=== PATIENT | female | born 1985 | race Caucasian/White ===

== ENCOUNTER 2020-08-09 19:54 | Emergency (ER) | payer OTHER ==
[~2020-08-09] VITALS: Ht 160 cm; Wt 86.4 kg
[2020-08-09] MEDS ORDERED: BUSP1TAB PO (20:07)
[2020-08-09] MEDS ORDERED: OMEP10CASR PO (20:07)
[2020-08-09] MEDS ORDERED: PERCOCET PO (20:07)
[2020-08-09] MEDS ORDERED: BCP (20:08)
[2020-08-09] MEDS ORDERED: CYCL-707 PO (20:08)
[2020-08-09] MEDS ORDERED: ACETAMINOPHEN 500 MG TAB PO ONE (20:30)
[2020-08-09] MEDS ORDERED: LIDOCAINE 5% (LIDODERM) PATCH TD ONE (20:30)
[2020-08-09] MEDS ORDERED: CYCLOBENZAPRINE 10MG TABLET PO ONE (20:30)
[2020-08-09] MEDS ORDERED: KETOROLAC 60MG 2ML VIAL IM ONE (21:00)
--- NOTE | 2020-08-09 22:08 | REPVR ---
PROCEDURE INFORMATION: Exam: CT Abdomen And Pelvis Without Contrast Exam date and time: 08/09/2020 9:47 PM Age: 34 years old Clinical indication: Abdominal pain; Prior surgery; Additional info: L low back pain, hematuria, R/O stone TECHNIQUE: Imaging protocol: Computed tomography of the abdomen and pelvis without contrast. Radiation optimization: All CT scans at this facility use at least one of these dose optimization techniques: automated exposure control; mA and/or kV adjustment per patient size (includes targeted exams where dose is matched to clinical indication); or iterative reconstruction. COMPARISON: No relevant prior studies available. FINDINGS: Liver: Normal. No mass. Gallbladder and bile ducts: The gallbladder is contracted with no stones. Pancreas: Normal. No ductal dilation. Spleen: Normal. No splenomegaly. Adrenal glands: Normal. No mass. Kidneys and ureters: Mild left hydronephrosis and hydroureter with some periureteral edema which extends to a distal left ureteral calculus adjacent to the UVJ measuring 3 x 4 x 4 mm. Stomach and bowel: Borderline distention of the stomach with food material. Mild stool throughout much of the colon. Appendix: A normal appendix is seen. Intraperitoneal space: Unremarkable. No free air. No significant fluid collection. Vasculature: Unremarkable. No abdominal aortic aneurysm. Lymph nodes: Unremarkable. No enlarged lymph nodes. Urinary bladder: Unremarkable as visualized. Reproductive: Retroverted uterus. Bones/joints: Status post fusion from L3-S1 with posterior pedicular screws and interspace devices with anterior retainers. Soft tissues: Unremarkable. IMPRESSION: 1. Distal left ureteral calculus adjacent to the UVJ measuring 3 x 4 x 4 mm with obstructive uropathy of the left upper tract. 2. Status post anterior and posterior fusion from L3-S1. 3. There is borderline distention of the stomach which in view of a contracted gallbladder likely reflects recent ingestion. Electronically signed by: Berto Mejia On 08/09/2020 22:07:58 PM
[2020-08-09] MEDS ORDERED: KETO10TAB PO (22:18)
[2020-08-09] MEDS ORDERED: FLOM0.4C39 PO (22:18)
[2020-08-09 22:28] VITALS: BP 133/80
[2020-08-09] MEDS ORDERED: TAMSULOSIN 0.4 MG CAP PO ONE (22:30)
[2020-08-10] MEDS ORDERED: **NOTE PATIENT COMMENT** MISC XX ONE (08:30)
== END 2020-08-09 22:26 | disposition home or self-care (01) ==
LOC: M ED 19:54
DX: N20.1 Calculus of ureter (principal); M51.9 Unspecified thoracic, thoracolumbar and lumbosacral intervertebral disc disorder; G89.29 Other chronic pain; E66.9 Obesity, unspecified; F31.9 Bipolar disorder, unspecified; F41.9 Anxiety disorder, unspecified; F17.200 Nicotine dependence, unspecified, uncomplicated; Z79.899 Other long term (current) drug therapy; Z88.8 Allergy status to other drugs, medicaments and biological substances
CPT/HCPCS: 74176; 81001; 96372; 99283; J1885

== ENCOUNTER → 2020-09-05 | Outpatient (REF) | payer OTHER ==
[~2020-09-05] MED LIST: BCP; BUSP1TAB PO; CYCL-707 PO; FLOM0.4C39 PO; KETO10TAB PO; OMEP10CASR PO; PERCOCET PO
== END ==
LOC: M SMT 13:09
PROVIDERS: ATTEND Nurse Practitioner Women's Health
DX: N13.2 Hydronephrosis with renal and ureteral calculous obstruction (principal)

== ENCOUNTER 2020-10-28 13:11 | Emergency (ER) | payer OTHER ==
[~2020-10-28] VITALS: Ht 160 cm; Wt 94.1 kg
--- OUTSIDE RECORDS SUMMARY | 2020-10-28 13:17 | CCD | Continuity of Care Document ---
Author Author Ashly EDWARDS M.D. Organization Unknown Address [address] [place] [id number] Phone [phone] Care Team Providers Care Medical Assembler Name Role Phone Eveline Luna PA-C AUTM [phone] Evelina Pearce AUTM Unavailable Problems Active Problems Provider Date Migraine Bhupendra Edwards M.D. Onset: 10/20/2020 Social History Type Date Description Comments Sex Unknown Tobacco Use Start: Unknown Patient is a current smoker, smo kes every day Allergies, Adverse Reactions, Alerts Active Allergies Reaction Severity Comments Date Latex 10/20/2020 Zoloft Severe Anaphylaxis 10/20/2020 Ketorolac Rash 10/20/2020 Lexapro 10/20/2020 Wellbutrin 10/20/2020 Nortriptyline Burning sensation Medications Active Medications SIG Qnty Indications Ordering Provide r Date Verapamil HCL 40mg Tablets Take 1 tab PO bid after 1 week can increase to 2 tabs PO bid 120tabs S shruthi Edwards M.D. 10/20/2020 Zonisamide 50mg Capsules Patient takes 4 capsules at bedtime. Bhupendra Edwards M.D. Immunizations Description No Information Available Vital Signs Date Vital Result Comment 10/20/2020 8:56am Respiratory Rate 12 /min Height 63 inches 5'3" Weight 190.00 lb BMI (Body Mass Index) 33.7 kg/m2 [place] Body Weight 115 lb Results Description No Information Available Procedures Description No Information Available Medical Devices Description No Information Available Encounters Description No Information Available Assessments Date Code Description Provider 10/20/2020 G43.719 Chronic migraine wit hout aura, intractable, without status migrainosus Bhupendra Edwards M.D. 10/20/2020 N20.0 Calculus of kidney Bhupendra gonzalez M.D. Plan of Treatment Future Appointment(s):* 01/04/2021 2:00 pm - Bhupendra Edwards M.D. at Main office - [place] Functional Status Description No Information Available Mental Status Description No Information Available Referrals Description No Information Available
--- OUTSIDE RECORDS SUMMARY | 2020-10-28 13:17 | CCD | Continuity of Care Document ---
Author Author Ashly EDWARDS M.D. Organization Unknown Address [address] [place] [id number] Phone [phone] Care Team Providers Care Biometrics Instructor Name Role Phone Eveline Luna PA-C AUTM [phone] Evelina Pearce AUTM Unavailable Problems Active Problems [...] lb BMI (Body Mass Index) 33.7 kg/m2 [place] Body Weight 115 lb Results Description No Information Available Procedures Description No Information Available Medical Devices Description No Information Available Encounters Type Date Location Provider Dx Diagnosis Office Visit 10/20/2020 8:30a Main office - [place] Bhupendra ngo M.D. G43.719 Chronic migraine w/o aura, intractable, w/o stat migr N20.0 Calculus of kidney Assessments Date Code Description Provider 10/20/2020 G43.719 Chronic migraine wit hout aura, intractable, without status migrainosus Bhupendra Edwards M.D. 10/20/2020 N20.0 Calculus of kidney Bhupendra gonzalez M.D. Plan of Treatment Future Appointment(s):* 01/04/2021 2:00 pm - Bhupendra Edwards M.D. at Main office - [place] Functional Status Description No Information Available Mental Status Description No Information Available Referrals Description No Information Available
--- OUTSIDE RECORDS SUMMARY | 2020-10-28 13:17 | CCD ---
Author Author [facility] Organization [facility] Address Unknown Phone Unavailable Care Team Providers Care Sql Developer Dba Name Role Phone [facility], Emergency Gage Unavailable Unavailable Delta, COVID Unavailable Unavailable Clarita Yadav MD Unavailable Unavailable Clarita Yadav MD Unavailable Unavailable Clarita Yadav MD Unavailable Unavailable Kishan Zavaleta MD Unavailable Kishan Zavaleta MD Unavailable Kishan Zavaleta MD Unavailable Kishan Zavaleta MD Unavailable Kishan Zavaleta MD Unavailable Kelin ([facility] COVID), DO NOT EDIT Ady HERNÁNDEZ Unavail able Unavailable Sophie Antonio MD Unavailable Unavailable Sophie Antonio MD Unavailable Unavailable Sophie Antonio MD Unavailable Unavailable Sophie Antonio MD Unavailable Unavailable Sophie Antonio MD Unavailable Unavailable Sophie Antonio MD Unavailable Unavailable Sophie Antonio MD Unavailable Unavailable Sophie Antonio MD Unavailable Unavailable Sophie Antonio MD Unavailable Unavailable Sophie Antonio MD Unavailable Unavailable Sophie Antonio MD Unavailable Unavailable Sophie Antonio MD Unavailable Unavailable Sophie Antonio MD Unavailable Unavailable Sophie Antonio MD Unavailable Unavailable Sophie Antonio MD Unavailable Unavailable Sophie Antonio MD Unavailable Unavailable Sophie Antonio MD Unavailable Unavailable Sophie Antonio MD Unavailable Unavailable NickBrian MD Unavailable Unavailable Mcgrew, Brian Epstein MD Unavailable Unavailable Nick, Brian Epstein MD Unavailable Unavailable Mcgrew, Brian Epstein MD Unavailable Unavailable Nick, Brian Epstein MD Unavailable Unavailable Mcgrew, Brian Epstein MD Unavailable Unavailable Mcgrew, Brian Epstein MD Unavailable Unavailable Nick, Brian Epstein MD Unavailable Unavailable Mcgrew, Brian Epstein MD Unavailable Unavailable Mcgrew, Brian Epstein MD Unavailable Unavailable Nick, Brian Epstein MD Unavailable Unavailable Nick, Brian Epstein MD Unavailable Unavailable Mcgrew, Brian Epstein MD Unavailable Unavailable Mcgrew, Brian Epstein MD Unavailable Unavailable Nick, Brian Epstein MD Unavailable Unavailable Mcgrew, Brian Epstein MD Unavailable Unavailable McgrewBrian MD Unavailable Unavailable Mcgrew, Brian Epstein MD Unavailable Unavailable Mcgrew, Brian Epstein MD Unavailable Unavailable Mcgrew, Brian Epstein MD Unavailable Unavailable Mcgrew, Brian Epstein MD Unavailable Unavailable Nick, Brian Epstein MD Unavailable Unavailable Mcgrew, Brian Epstein MD Unavailable Unavailable NickBrian MD Unavailable Unavailable NickBrian MD Unavailable Unavailable McgrewBrian MD Unavailable Unavailable McgrewBrian MD Unavailable Unavailable McgrewBrian MD Unavailable Unavailable McgrewBrian MD Unavailable Unavailable McgrewBrian MD Unavailable Unavailable NickBrian MD Unavailable Unavailable NickBrian MD Unavailable Unavailable NickBrian MD Unavailable Unavailable McgrewBrian MD Unavailable Unavailable Daja Barton MD Unavailable Unavailable Daja Barton MD Unavailable Unavailable Daja Barton MD Unavailable Unavailable Daja Barton MD Unavailable Unavailable Daja Barton MD Unavailable Unavailable Daja Barton MD Unavailable Unavailable Daja Barton MD Unavailable Unavailable Daja Barton MD Unavailable Unavailable Daja Barton MD Unavailable Unavailable Daja Barton MD Unavailable Unavailable Daja Barton MD Unavailable Unavailable Daja Barton MD Unavailable Unavailable Daja Barton MD Unavailable Unavailable Daja Barton MD Unavailable Unavailable Daja Barton MD Unavailable Unavailable Daja Barton MD Unavailable Unavailable Daja Barton MD Unavailable Unavailable Daja Barton MD Unavailable Unavailable Daja Barton MD Unavailable Unavailable Daja Barton MD Unavailable Unavailable Daja Barton MD Unavailable Unavailable Daja Barton MD Unavailable Unavailable Daja Barton MD Unavailable Unavailable Daja Barton MD Unavailable Unavailable Daja Barton MD Unavailable Unavailable Daja Barton MD Unavailable Unavailable Daja Barton MD Unavailable Unavailable Daja Barton MD Unavailable Unavailable Daja Barton MD Unavailable Unavailable Daja Barton MD Unavailable Unavailable Daja Barton MD Unavailable Unavailable Daja Barton MD Unavailable Unavailable Daja Barton MD Unavailable Unavailable Daja Barton MD Unavailable Unavailable Daja Barton MD Unavailable Unavailable Daja Barton MD Unavailable Unavailable Daja Barton MD Unavailable Unavailable Daja Barton MD Unavailable Unavailable Daja Barton MD Unavailable Unavailable Daja Barton MD Unavailable Unavailable Daja Barton MD Unavailable Unavailable Daja Barton MD Unavailable Unavailable Daja Barton MD Unavailable Unavailable Daja Barton MD Unavailable Unavailable Daja Barton MD Unavailable Unavailable Daja Barton MD Unavailable Unavailable Daja Barton MD Unavailable Unavailable Daja Barton MD Unavailable Unavailable Daja Barton MD Unavailable Unavailable Daja Barton MD Unavailable Unavailable Daja Barton MD Unavailable Unavailable Daja Barton MD Unavailable Unavailable Daja Barton MD Unavailable Unavailable Daja Barton MD Unavailable Unavailable Daja Barton MD Unavailable Unavailable Daja Barton MD Unavailable Unavailable Daja Barton MD Unavailable Unavailable Daja Barton MD Unavailable Unavailable Daja Barton MD Unavailable Unavailable Daja Barton MD Unavailable Unavailable Daja Barton MD Unavailable Unavailable Mick O Bhupendra HERNÁNDEZ Unavailable Unavailable Daja Barton MD Unavailable Unavailable Daja Barton MD Unavailable Unavailable Daja Barton MD Unavailable Unavailable Daja Barton MD Unavailable Unavailable Daja Barton MD Unavailable Unavailable Daja Barton MD Unavailable Unavailable Daja Barton MD Unavailable Unavailable Daja Barton MD Unavailable Unavailable Daja Batron MD Unavailable Unavailable Daja Barton MD Unavailable Unavailable Daja Barton MD Unavailable Unavailable Daja Barton MD Unavailable Unavailable Daja Barton MD Unavailable Unavailable Jeannine Oneill Veda CUSTOMS EXAMINER-C Unavailable Unavailable Jeannine Oneill Veda CUSTOMS EXAMINER-C Unavailable Unavailable Jeannine Oneill Veda CUSTOMS EXAMINER-C Unavailable Unavailable Jeannine Oneill Veda CUSTOMS EXAMINER-C Unavailable Unavailable Jeannine Oneill Veda CUSTOMS EXAMINER-C Unavailable Unavailable Jeannine Oneill Veda CUSTOMS EXAMINER-C Unavailable Unavailable Jeannine Oneill Veda CUSTOMS EXAMINER-C Unavailable Unavailable Jeannine Oneill Veda CUSTOMS EXAMINER-C Unavailable Unavailable Jeannine Oneill Veda CUSTOMS EXAMINER-C Unavailable Unavailable Jeannine Oneill Veda CUSTOMS EXAMINER-C Unavailable Unavailable Jeannine Oneill Veda CUSTOMS EXAMINER-C Unavailable Unavailable Jeannine Oneill Veda CUSTOMS EXAMINER-C Unavailable Unavailable Jeannine Oneill Veda CUSTOMS EXAMINER-C Unavailable Unavailable Nino M Veda CUSTOMS EXAMINER-C Unavailable Unavailable Jeannine Oneill Veda CUSTOMS EXAMINER-C Unavailable Unavailable Jeannine Oneill Veda CUSTOMS EXAMINER-C Unavailable Unavailable Jeannine Oneill Veda CUSTOMS EXAMINER-C Unavailable Unavailable Jeannine Oneill Veda CUSTOMS EXAMINER-C Unavailable Unavailable Jeannine Oneill Veda CUSTOMS EXAMINER-C Unavailable Unavailable Jeannine Oneill Veda CUSTOMS EXAMINER-C Unavailable Unavailable Jeannine Oneill CUSTOMS EXAMINER-C Unavailable Unavailable Jeannine Oneill CUSTOMS EXAMINER-C Unavailable Unavailable Jeannine Oneill CUSTOMS EXAMINER-C Unavailable Unavailable Jeannine Oneill CUSTOMS EXAMINER-C Unavailable Unavailable Jeannine Oneill CUSTOMS EXAMINER-C Unavailable Unavailable Jeannine Oneill CUSTOMS EXAMINER-C Unavailable Unavailable Jeannine Oneill CUSTOMS EXAMINER-C Unavailable Unavailable Re-disclosure Warning The records that you are about to access may contain information from federally-assisted alcohol or drug abuse programs. If such information is present, then the following federally mandated warning applies: This information has been disclosed to you from records protected by federal confidentiality rules (42 CFR part 2). The federal rules prohibit you from making any further disclosure of this information unless further disclosure is expressly permitted by the written consent of the person to whom it pertains or as otherwise permitted by 42 CFR part 2. A general authorization for the release of medical or other information is NOT sufficient for this purpose. The Federal rules restrict any use of the information to criminally investigate or prosecute any alcohol or drug abuse patient.The records that you are about to access may contain highly sensitive health information, the redisclosure of which is protected by Article 27-F of the [facility] Public Health law. If you continue you may have access to information: Regarding HIV / AIDS; Provided by facilities licensed or operated by the [facility] Office of Mental Health; or Provided by the [facility] Office for People With Developmental Disabilities. If such information is present, then the following [facility] mandated warning applies: This information has been disclosed to you from confidential records which are protected by state law. State law prohibits you from making any further disclosure of this information without the specific written consent of the person to whom it pertains, or as otherwise permitted by law. Any unauthorized further disclosure in violation of state law may result in a fine or fpc sentence or both. A general authorization for the release of medical or other information is NOT sufficient authorization for further disc losure. Allergies and Adverse Reactions Type Description Substance Reaction Status Data Source(s ) Allergy to substance Allergy to substance sertraline [facility] Allergy to substance Allergy to substance latex [facility] Allergy to substance Allergy to substance escitalopram [facility] Allergy to substance Allergy to substance bupropion [facility] Encounters Encounter Providers Location Date Indications Data Source(s ) Unknown [address] [facility] [address] 10/23/2020 12:00:00 AM EST eCW1 ([facility]) Outpatient Attender: Bhupendra Barton MD Main office - [facility] 10/20/2020 07:30:00 AM EST MEDENT ([facility]) Emergency Attender: Queta Paez DAttender: Gage CMCEDConsultant: Lucian Romero MD 06/21/2020 03:06:00 PM EDT - 06/21/2020 05:55:00 PM EDT LOWER BACK PAIN PER PT [facility] LOWER BACK PAIN PER PT Patient discharged. Outpatient Attender: Ady Neville ([facility]) MDConsult ant: SEBASTIAN Cueto 06/16/2020 01:43:00 PM EDT [facility] Emergency Attender: Berto Antonio MD 01/07/2020 12: 06:00 PM EDT DIARRHEA,VOMITING,HEADACHE [facility] DIARRHEA,VOMITING,HEADACHE Emergency Attender: Ginette Zavaleta MD 11/28 07:36:00 AM EST - 11/28/2019 10:33:00 AM EST HEAD INJURY PER PT [facility] HEAD INJURY PER PT Patient discharged. Lab Req Attender: Veda VILLEDA-CReferrer: Veda Blanco-C [id number] 09/02/2019 02:30:21 PM EST [facility] Medications Medication Brand Name Start Date Product Form Dose Route Admi nistrative Instructions Pharmacy Instructions Status Indications Reaction Description Data Source(s) 5-325 mg 10/23/2020 12:00:00 AM EST tablet 120 TAKE ONE TABLET BY MOUTH EVERY 6 HOURS NEEDED, MAXIMUM DAILY DOSE = FOUR TABLETS TAKE ONE TABLET BY MOUTH EVERY 6 HOURS NEEDED, MAXIMUM DAILY DOSE = FOUR TABLETS SOLD: 10/23/2020 [facility] Acetaminophen 325 MG / Oxycodone Hydroch loride 5 MG Oral Tablet Oxycodone- Acetaminophen 5-325 MG Oxycodone-Acetaminophen 5-325 MG 10/23/2020 12:00:00 A M EST 1.0 {tablet_as_needed} active O xycodone-Acetaminophen 5-325 MG eCW1 ([facility]) buspirone hydrochloride 15 MG Oral Tablet BUSPIRONE HCL 10/23/2020 12:00:00 AM EST tablet 60 TAKE ONE TABLET BY MOUTH TWI CE A DAY TAKE ONE TABLET BY MOUTH TWICE A DAY SOLD: 10/23/2020 [facility] 60 mg 10/23/2020 12:00:00 AM EST capsule,delayed release (DR/EC) 60 TAKE ONE CAPSULE BY MOUTH TWICE A DAY TAKE ONE CAPSULE BY MOUTH TWICE A DAY SOLD: 10/23/2020 [facility] Verapamil hydrochloride 40 MG Oral Tablet Verapamil HCL 10/20/2020 12:00:00 AM EST active MEDENT ([facility]) 50 mg 10/16/2020 12:00:00 AM EST capsule 120 TAKE FOUR CAPSULES BY MOUTH AT BEDTIME TAKE FOUR CAPSULES BY MOUTH AT BEDTIME SOLD: 10/17/2020 [facility] 20 mg 10/02/2020 12:00:00 AM EST capsule,delayed release (DR/EC) 30 TAKE ONE CAPSULE BY MOUTH EVERY MORNING - 30 MINUTES BEFORE MORNING MEAL TAKE ONE CAPSULE BY MOUTH EVERY MORNING - 30 MINUTES BEFORE MORNING MEAL SOLD: 10/07/2020 [facility] 5-325 mg 09/15/2020 12:00:00 AM EST tablet 90 TAKE ONE TABLET BY MOUTH EVERY 8 HOURS NEEDED FOR SEVERE PAIN, MAXIMUM DAILY DOSE = THREE TABLETS TAKE ONE TABLET BY MOUTH EVERY 8 HOURS NEEDED FOR SEVERE PAIN, MAXIMUM DAILY DOSE = THREE TABLETS SOLD: 09/15/2020 [facility] buspirone hydrochloride 15 MG Oral Tablet BUSPIRONE HCL 09/06/2020 12:00:00 AM EST tablet 60 TAKE ONE TABLET BY MOUTH TWO TIMES A DAY TAKE ONE TABLET BY MOUTH TWO TIMES A DAY SOLD: 09/06/2020 [facility] Eth estra 0.01 MG (7) Oral Tablet / Eth estra-Levonorgest 0.02-0.15 MG (42) Oral Tablet / Eth estra-Levonorgest 0.025-0.15 MG (21) Oral Tablet / Eth estra- Levonorgest 0.03-0.15 MG (21) Oral Tablet 3 Month Pack 0.15 mg-20 mcg/ 0.15 mg- 25 mcg LEVONORGESTREL/ETHINYL ESTRADIOL AND ETHINYL ESTRADIOL 09/05/2020 12:00:00 AM EST tablets,dose pack,3 month 91 TAKE O NE TABLET BY MOUTH ONCE DAILY TAKE ONE TABLET BY MOUTH ONCE DAILY SOLD: 09/06/2020 [facility] 20 mg 09/01/2020 12:00:00 AM EST capsule,delayed release (DR/EC) 30 TAKE ONE CAPSULE BY MOUTH EVERY DAY 30 MINUTES BEFORE MORNING MEAL TAKE ONE CAPSULE BY MOUTH EVERY DAY 30 MINUTES BEFORE MORNING MEAL SOLD: 09/06/2020 [facility] 7.5 mg 09/01/2020 12:00:00 AM EST tablet 60 TAKE ONE TABLET BY MOUTH TWICE A DAY TAKE ONE TABLET BY MOUTH TWICE A DAY SOLD: 09/06/2020 [facility] Cyclobenzaprine hydrochloride 10 MG Oral Tablet CYCLOBENZAPR INE HCL 08/16/2020 12:00:00 AM EST tablet 90 TAKE ONE TABLET BY MOUTH THREE TIMES A DAY NEEDED TAKE ONE TABLET BY MOUTH THREE TIMES A DAY NEEDED SOLD: 10/07/2020 [facility] 7.5 mg 08/10/2020 12:00:00 AM EDT tablet 60 TAKE ONE TABLET BY MOUTH TWICE A DAY TAKE ONE TABLET BY MOUTH TWICE A DAY SOLD: 08/11/2020 [facility] 20 mg 08/10/2020 12:00:00 AM EDT capsule,delayed release (DR/EC) 30 TAKE ONE CAPSULE BY MOUTH EVERY DAY 30 MINUTES BEFORE MORNING MEAL TAKE ONE CAPSULE BY MOUTH EVERY DAY 30 MINUTES BEFORE MORNING MEAL SOLD: 08/11/2020 [facility] 10 mg 08/10/2020 12:00:00 AM EDT tablet 12 TAKE ONE TABLET BY MOUTH EVERY 6 HOURS NEEDED FOR PAIN TAKE ONE TABLET BY MOUTH EVERY 6 HOURS A S NEEDED FOR PAIN SOLD: 08/10/2020 [facility] 0.4 mg 08/10/2020 12:00:00 AM EDT capsule 5 TAKE ONE CAPSULE BY MOUTH EVERY DAY 30 MINUTES FOLLOWING THE SAME MEAL EACH DAY TAKE ONE CAPSULE BY MOUTH EVERY DAY 30 MINUTES FOLLOWING THE SAME MEAL EACH DAY SOLD: 08/10/2020 [facility] 60 mg 07/19/2020 12:00:00 AM EDT capsule,delayed release (DR/EC) 60 TAKE ONE CAPSULE BY MOUTH TWO TIMES A DAY TAKE ONE CAPSULE BY MOUTH TWO TIMES A DAY SOLD: 09/23/2020 [facility] 50 mg 07/19/2020 12:00:00 AM EDT capsule 90 TAKE THREE CAPSULES BY MOUTH AT BEDTIME TAKE THREE CAPSULES BY MOUTH AT BEDTIME SOLD: 07/24/2020 [facility] 50 mg 07/19/2020 12:00:00 AM EDT capsule 90 TAKE THREE CAPSULES BY MOUTH AT BEDTIME TAKE THREE CAPSULES BY MOUTH AT BEDTIME SOLD: 08/23/2020 [facility] 50 mg 07/19/2020 12:00:00 AM EDT capsule 90 TAKE THREE CAPSULES BY MOUTH AT BEDTIME TAKE THREE CAPSULES BY MOUTH AT BEDTIME SOLD: 09/23/2020 [facility] 60 mg 07/19/2020 12:00:00 AM EDT capsule,delayed release (DR/EC) 60 TAKE ONE CAPSULE BY MOUTH TWO TIMES A DAY TAKE ONE CAPSULE BY MOUTH TWO TIMES A DAY SOLD: 08/23/2020 [facility] 60 mg 07/19/2020 12:00:00 AM EDT capsule,delayed release (DR/EC) 60 TAKE ONE CAPSULE BY MOUTH TWO TIMES A DAY TAKE ONE CAPSULE BY MOUTH TWO TIMES A DAY SOLD: 07/24/2020 [facility] 5-325 mg 07/18/2020 12:00:00 AM EDT tablet 90 TAKE ONE TABLET BY MOUTH EVERY 8 HOURS NEEDED FOR SEVERE PAIN MAXIMUM DAILY DOSE = THREE TABLETS TAKE ONE TABLET BY MOUTH EVERY 8 HOURS NEEDED FOR SEVERE PAIN MAXIMUM DAILY DOSE = THREE TABLETS SOLD: 07/18/2020 [facility] 4 mg 07/12/2020 12:00:00 AM EDT tablets,dose pack 21 TAKE BY MOUTH DAILY DIRECTED ON DOSEPACK TAKE BY MOUTH DAILY DIRECTED ON DOSEPACK SOLD: 07/12/2020 [facility] 200 mg 07/07/2020 12:00:00 AM EDT capsule 15 TAKE ONE CAPSULE BY MOUTH THREE TIMES A DAY FOR 5 DAYS TAKE ONE CAPSULE BY MOUTH THREE TIMES A DAY FOR 5 DAYS SOLD: 07/07/2020 [facility] 800 mg 07/07/2020 12:00:00 AM EDT tablet 30 TAKE ONE TABLET BY MOUTH THREE TIMES A DAY FOR 10 DAYS TAKE ONE TABLET BY MOUTH THREE TIMES A DAY FOR 10 DAYS SOLD: 07/07/2020 [facility] 250 mg 07/07/2020 12:00:00 AM EDT tablet 6 TAKE TWO TABLETS BY MOUTH AT ONCE ON THE FIRST DAY THEN TAKE ONE DAILY THEREAFTER TAKE TWO TABLETS BY MOUTH AT ONCE ON THE FIRST DAY THEN TAKE ONE DAILY THEREAFTER SOLD: 07/07/2020 [facility] 20 mg 07/07/2020 12:00:00 AM EDT tablet 10 TAKE TWO TABLETS BY MOUTH EVERY MORNING FOR 5 DAYS TAKE TWO TABLETS BY MOUTH EVERY MORNING FOR 5 DAYS SAMANTHA [facility] Methocarbamol 750 MG Oral Tablet [Robaxin] Methocarbamol 06/21/2020 05:21:55 PM EDT TABLET 750 MG ORAL active [facility] Methylprednisolone Methylprednisolone 06/21/2020 05:21:29 PM EDT UNAS SIGNED 0 Route active [facility] Acetaminophen 325 MG / Oxycodone Hydroch loride 5 MG Oral Tablet Oxycodone-Acetaminophen Oxycodone-Acetaminophen 11/28/2019 09:31:26 AM EST TABLET 1 TAB ORAL active [facility] Acetaminophen 325 MG / Oxycodone Hydroch loride 5 MG Oral Tablet Oxycodone/Acetamin 5/325 Mg* Oxycodone/Acetamin 5/325 Mg* 11/28/2019 09:31:00 AM EST TABLET 1 TAB ORAL active [facility] tramadol hydrochloride 50 MG Oral Tablet Tramadol Tramadol 11/28/2019 09:24:16 AM EST TABLET 50 MG ORAL active [facility] zonisamide 50 MG Oral Capsule Zonisamide Zonisamide 020 09:24:16 AM EST CAPSULE 150 MG ORAL active [facility] tramadol hydrochloride 50 MG Oral Tablet Tramadol Hcl Tramad ol Hcl 11/28/2019 09:24:00 AM EST TABLET 50 MG ORAL active [facility] Zonisamide 11/28/2019 09:24:00 AM EST CAPSULE 150 MG ORAL ac tive [facility] Lidocaine Hydrochloride 0.05 MG/MG Trans dermal Patch [Lidoderm] Lidocaine Patch 5%* Lidocaine Patch 5%* 08/05/2019 10:48:00 AM EDT PATCH 1 PATCH TRANSDERM completed [facility] enter Prednisone 50 MG Oral Tablet Prednisone 50 Mg Tab Prednisone 50 Mg Tab 08/05/2019 10:48:00 AM EDT TABLET 50 MG ORAL [facility] Acetaminophen 325 MG / Oxycodone Hydroch loride 5 MG Oral Tablet Oxycodone/Acetamin 5/325 Mg* Oxycodone/Acetamin 5/325 Mg* 08/05/2019 10:48:00 AM EDT TABLET 2 TAB ORAL [facility] zonisamide 50 MG Oral Capsule Zonisamide (Nf) Zonisamide (Nf ) 08/05/2019 09:51:00 AM EDT CAPSULE 150 MG ORAL completed [facility] Naproxen 500 MG Oral Tablet Naproxen 08/05/2019 09:51:00 AM EDT TAB LET 500 MG ORAL completed [facility] Insurance Providers Payer name Policy type / Coverage type Policy ID Covered constitution party ID Covered constitution party's relationship to knight Policy Knight Plan Information EZEKIEL [id number] SP [id number] [place] [id number] S [id number] SELF PAY SELF PAY SELF PAY SELF [employer]EL[employer] [id number] SELF [id number] [place] [id number] Self [id number] EZEKIEL O 22 [id number] Self [id number] EZEKIEL[employer]ICA[employer]NA[employer]ED CARE [id number] SELF [id number] Problems, Conditions, and Diagnoses Code Display Name Description Problem Type Effective Dates Data Source(s) M51.36 [id number] DDD (degenerative disc disease), lumbar P roblem 10/20/2020 12:00:00 AM EST eCW1 ([facility]) F31.9 [id number] Bipolar affective disorder, remission sta tus unspecified Problem 10/20/2020 12:00:00 AM EST eCW1 ([facility]) [id number] Migraine Migraine Problem 10/20/2020 12:00:00 AM JUSTINE MCCALL ([facility] ) N13.2 Hydronephrosis with renal and ureteral c alculous obstruction Ureteral stone with hydronephrosis Problem 09/05/2020 12:00:00 AM EST eCW1 [facility] S09.90XA Unspecified injury of head, initial enco unter S09.90XA - Unspecified injury of head, initial encounter Diagnosis 11/28/2019 07:36:00 AM [facility] Surgeries/Procedures Procedure Description Date Indications Data Source(s) CT SPINE LUMBAR W/O 06/21/2020 04:12:00 PM EDT [facility] Computerized axial tomography of brain without radiopa que contrast (procedure) 11/28/2019 12:00:00 AM EST [facility] Results ID Date Data Source [id number] 08/01/2020 12:00:00 AM EDT [facility] Imaging Lucian Romero MD Patient Name: BHUMI [address] Date of : 1985 10 Date of Exam: 08/01/2020LEONARDO Muir [id number]#: Fax: [phone] EXAM: MRI LUMBAR SPINE WITHOUT&WITH CONTRASTPROCEDURE INFORMATION:Exam: MR Lumbar Spine Without and With Contrast.Exam date and time: 08/01/2020 8:49 AM Age: 34 years oldClinical indication: Low back pain; Prior hernandez rgery; Surgery date: 6+ months;Surgery type: FusionTECHNIQUE: Imaging protocol: Multiplanar magnetic resonance images of thelumbar spine without and with intravenous contrast. Contrast material:PROHANCE; Contrast volume: 17 ml; Contrast route: INTRAVENOUS (IV);COMPARISON: No relevant prior studies available.FINDINGS:Vertebrae: Patient is status post lumbar fusion from L4-S1. Surgicalhardware causes moderate magnetic susceptibility artifact which limitsevaluation of the surrounding anatomy.Spinal cord: Normal signal. No cord compression.L1-L2: No significant spinal canal stenosis. No neural foraminal stenosis.L2-L3: No significant spinal canal stenosis. No neural foraminal stenosis.L3-L4: No significant spinal canal stenosis. No neural foraminal stenosis.L4-L5: No significant spinal canal stenosis. No neural foraminal stenosis.L5-S1: No significant spinal canal stenosis. No neural foraminal stenosis.Soft tissues: Unremarkable. There is no abnormal enhancement.IMPRESSION:Patient is status post lumbar fusion from L4-S1. Surgical hardware causesmoderate magnetic susceptibility artifact which limits evaluation of thesurrounding anatomy. Please correlate with surgical history.Thank you for allowing us to participate in the care of your patient.Dictated and Authenticated by: Tutu Yarbrough MD 08/01/2020 11:38 AM [place]VradV/Lorin you for referring BHUMI REINA to our office. Electronically Signed - [facility] 08/01/20 12:32 Name Value Range Interpretation Code Description Data Ariane rce(s) Supporting Document(s) ID Date Data Source [id number] 06/21/2020 05:42:00 PM EDT [facility] Name Value Range Interpretation Code Description Data Ariane rce(s) Supporting Document(s) Urine Color Yellow [facility] Urine Appearance Clear [facility] Urine Specific Starr 1.020 1.010-1.[address] [facility] Urine pH 6.0 5-9 N [facility] Urine Urobilinogen Negative Negative [facility] Urine Ketones Trace Negative A [facility] enter Urine Protein Negative Negative [facility] enter Urine Leukocytes Negative Negative [facility] Urine Blood Negative Negative [facility] ter * * Negative A [facility] *Ascorbic acid is present which may inte rfere with detectionof blood. Urine Nitrite Negative Negative [facility] enter Urine Bilirubin Negative Negative [facility] Urine Glucose Negative Negative [facility] enter ID Date Data Source [id number] 06/21/2020 04:37:00 PM EDT [facility] Patient Name: BHUMI REINA Ordering Physician: Wanda PENA Accoun t Number: [id number] : 1985 Age: 34 Sex: F Location: EMERGENCY DEPARTMENT Exam Date: 06/21/20 1612 ADM Status: REG ER Observation Date/Time: Order Information: CT SPINE LUMBAR W/O Accession Number: [id number] CPT: 66685 Indication: Low back pain, numbness in the legs. CT of the lumbar spine was obtained in the axial plane. Sagittal and coronal reconstructed images were obtained. Comparison is made with previous exam dated June 17, 2017. The vertebral bodies appear normal in height. Disc spaces all well-preserved. At L1-L2 and L2-L3 the disc space is preserved. No focal protrusion is noted. At L3-L4 there is no disc protrusion. No central foraminal stenosis is noted. At L4-L5 there are transpedicular screws noted. No central foraminal stenosis is noted. At L5- S1 transpedicular screws are noted. Intervertebral disc spacers are noted. IMPRESSION: No compression fracture is noted. Posterior fusion of L4, L5 and S1. <Electronically signed by Joyce Manley MD in OV> 06/21/201637 Dictated By: Joyce Manley MD Dictated Date/Time: 06/21/201636 Transcribed Date/Time: 06/21/201636 Copy to: CC:Queta Yadav MD; Wanda PENA; Lucian Romero MD; Joyce Manley MD; Brendan Whaeln DO Imaging - [facility] Imaging [facility] Urgent [facility] [address] [address] ph ([phone]) ph ([phone]) ph ( [phone]) Name Value Range Interpretation Code Description Data Ariane rce(s) Supporting Document(s) ID Date Data Source [id number] 06/21/2020 04:31:00 PM EDT [facility] ED Provider Documentation Patient: BHUMI REINA Account Number: [id number] /Age: 11 1985 34 Medical Record #: [id number] Service Date: 06/21/20 Location: EMERGENCY DE PARTMENT Observation Date/Time: Back Pain - HPI Summary HPI Summary: 34 year old patient presents with back pain that is increase in the past 2 weeks. Denies injury. She's been having some right leg numbness for past two weeks. Today her left leg went completely numb. States it has been intermittent numbness. Denies any fevers. No loss of bowel or bladder. no saddle anaesthesia. She is having difficulty ambulating due to the numbness. She has a history of surgery on her lower back by Dr. Romero. She has follow up with Dr. Romero next week. She denies any history of IV drug use. No urinary symptoms. She is on Percocet and Flexeril for pain. - History of Current Complaint Chief Complaint: EDBackInjuryPain Stated Complaint: LOWER BACK PAIN PER PT Time Seen by Provider: 06/21/20 16:03 Pain Intensity: 10 - Allergies/Home Medications Allergies/Adverse Reactions: Allergies Allergy/AdvReac Type Severity Reaction Status Date / Time bupropion [From Wellbutrin] Allergy Hives Verified 11/28/19 07:41 escitalopram [From Lexapro] Allergy Unknown Verified 11/28/19 07:41 Reaction Details latex Allergy Hives Verified 11/28/19 07:41 sertraline [From Zoloft] Allergy Hives Verified 11/28/19 07:41 Home Medications: Home Medications Butalb/Acetaminophen/Caffeine [Krcdjk-Dvogedpy-Neco 50-3 25-40] 1 each PO Q6HR PRN 08/05/19 [History Confirmed 11/28/19] albuterol sulfate [Ventolin HFA Inhaler*] 1 - 2 puff INH Q4H PRN 08/05/19 [History Confirmed 11/28/19] buspirone 7.5 mg PO BID 08/05/19 [History Confirmed 11/28/19] cyclobenzaprine 10 mg PO TID 08/05/19 [History Confirmed 11/28/19] duloxetine 60 mg PO BID 08/05/19 [History Confirmed 11/28/19] Zonisamide 150 mg PO BEDTIME 11/28/19 [History Confirmed 11/28/19] oxycodone-acetaminophen 1 tab PO Q6H PRN MDD 8 11/28/19 [History Confirmed 11/28/19] tramadol 50 mg PO BID 11/28/19 [History Confirmed 11/28/19] methocarbamol [Robaxin-750] 750 mg PO TID #15 tab 06/21/20 [Rx] methylprednisolone [Medrol (Marty)] See Rx Instructions .ROUTE .COMPLEX #1 packet 06/21/20 [Rx] PMH/Surg Hx/FS Hx/Imm Hx Endocrine/Hematology History: Denies: Hx Anticoagulant Therapy, Hx Diabetes Cardiovascular History: Denies: Hx Hypertension Musculoskeletal History: Reports: Other Musculoskeletal History - Hx chronic back pain Sensory History: Denies: Hx Legally Blind, Hx Deafness Opthamlomology History: Denies: Hx Legally Blind - Surgical History Surgery Procedure, Year, and Place: Frontal fusion 12/09/18 Infectious Disease History: No Infectious Disease History: Denies: Traveled Outside the [place] in Last 30 Days - Family History Known Family History: Negative: Cardiac Disease, Diabetes - Social History Alcohol Use: Occasionally Hx Substance Use: Yes Substance Use Type: Reports: Marijuana Substance Use Comment - Amount Last Used: last used last night Hx Tobacco Use: Yes Smoking Status (MU): Heavy Every Day Tobacco Smoker Type: Cigarettes Amount Used/How Often: 1/2 ppd Review of Systems Negative: Fever Negative: Chest Pain Negative: Shortness Of Breath Positive: Myalgia - back pain Positive: Numbness All Other Systems Reviewed And Are Negative: Yes Physical Exam Triage Information Reviewed: Yes Vital Signs On Initial Exam: Initial Mahsa ls Temp Pulse Resp BP Pulse Ox 97.0 F 89 16 135/96 99 06/21/20 15:09 06/21/20 15:09 06/21/20 15:09 06/21/20 15:09 06/21/20 15:09 Vital Signs Reviewed: Yes Appearance: Positive: Well-Appearing Skin: Positive: Warm, Dry Head/Face: Positive: Normal Head/Face Inspection Eyes: Positive: Normal, Conjunctiva Clear Respiratory/Lung Sounds: Positive: Clear to Auscultation, Breath Sounds Present Cardiovascular: Positive: Normal, RRR Abdomen Description: Positive: Nontender, Soft Bowel Sounds: Positive: Present Musculoskeletal: Positive: Other - tenderness over right side of lower back, good pulses, sensation decreased grossly to right leg, good pulses Neurological: Positive: Reflexes Intact - patella, Babinski Bilateral - normal Psychiatric: Positive: Normal Procedures - Sedation Patient Received Moderate/Deep Sedation with Procedure: No Diagnostics - Vital Signs Vital Signs Temp Pulse Resp BP Pulse Ox 06/21/20 15:09 97.0 F 89 16 135/96 99 - Laboratory Lab Statement: Any lab studies that have been ordered have been reviewed, and results considered in the medical decision making process. - CT back CT Interpretation Completed By: Radiologist Summary of CT Findings: IMPRESSION: No compression fracture is noted. Posterior fusion of L4, L5 and S1. Back Pain Course/Dx - Course Course Of Treatment: 34 year old patient presents with back pain that is increase in the past 2 weeks. Denies injury. She's been having some right leg numbness for past two weeks. Today her left leg went completely numb. States it has been intermittent numbness. Denies any fevers. No loss of bowel or bladder. no saddle anaesthesia. She is having difficulty ambulating due to the numbness. She has a history of surgery on her lower back by Dr. Romero. She has follow up with Dr. Romero next week. She denies any history of IV drug use. No urinary symptoms. She is on Percocet and Flexeril for pain. On exam has tenderness over right lower back. Positive straight legs. Reflexes are intact. Sensation decreased grossly on the right. CT shows fusion. no fracture. gave toradol and lidoderm. will switch to robaxin. placed on medrol packet. will have follow up with neurosurgery. patient understand and agrees with plan. - Diagnoses Differential Diagnosis/HQI/PQRI: Positive: Fracture, Herniated Disc, Strain Provider Diagnoses: Back pain - Critical Care Time Critical Care Statement: Critical care time is provided exclusive of any time spent performing procedures. Discharge ED - Sign- Out/Discharge Documenting (check all that apply): Patient Departure - Discharge Plan Condition: Stable Disposition: HOME Prescriptions: methocarbamol [Robaxin-750] 750 mg PO TID #15 tab methylprednisolone [Medrol (Marty)] See Rx Instructions .ROUTE .COMPLEX #1 packet Patient Education Materials: Back Pain (ED) Forms: *Work Release Referrals: Brendan Whalen DO [Primary Care Provider] - Lucian Romero MD [Medical Doctor] - Additional Instructions: Follow directions on package for Medrol pack Take robaxin three times a day Use ibuprofen or Tylenol for pain every 6 hours ice/heat area, move as much as possible Follow up with primary within 5 days follow up with neurosurgery Return to ED if develop any new or worsening symptoms - Bill ing Disposition and Condition Condition: STABLE Disposition: Home - Attestation Statements Provider Attestation: I was available for consultation for this patient. I did not evaluate the patient or participate inany medical decision making or disposition decisions unless I am specifically named in the chart as having consulted on the patient. If I have consulted on the patient, please see my own ED note on the patient encounter. Queta Yadav MD <Electronically signed by Wanda PENA> 06/21/201806 <Electronically signed by Queta Yadav MD> 06/21/202051 Entered by: Wanda PENA Entered Date/Time: 06/21/20 1631 Copy to: Brendan Whalen DO Name Value Range Interpretation Code Description Data Ariane rce(s) Supporting Document(s) ID Date Data Source [id number] 06/16/2020 08:46:00 PM EDT [facility] [id number] Name Value Range Interpretation Code Description Data Ariane rce(s) Supporting Document(s) SARS Coronavirus-2, PCR Undetected Undetected [facility] Negative results do not preclude SARS-Co V-2 infection andshould not be used as the sole basis for patient managementdecisions.The [employer] PT-PCR COVID-19 assay has been internallyvalidated for saliva and pooled upper respiratory specimens. SARS Coronavirus-2, Source Nasopharyngeal [facility] ID Date Data Source [id number] 11/28/2019 09:43:00 AM EST [facility] Patient Name: BHUMI REINA Medical Record#: [id number] Ordering Physician: Ginette Zavaleta MD Acct.#: [id number] : 1985 Age: 34 Sex: F Location: EMERGENCY DEPARTMENT Exam Date: 11/28/19857 ADM Status: REG ER Order Information: CT BRAIN WO Accession Number: [id number] CPT: 29391 Indication: Headache. CT of the brain performed without IV contrast. Ventricular structures are midline. No midline shift is noted. The extra-axial spaces are unremarkable. There is no evidence of intracranial mass or hemorrhage. No other high or low density lesions are identified. Mastoid air cells and paranasal sinuses are unremarkable. IMPRESSION: No intracranial mass or hemorrhage. <Electronically signed by Joyce Manley MD in OV> 11/28/19942 Dictated By: Jocye Manley MD Dictated Date/Time: 11/28/19942 Transcribed Date/Time: 11/28/19942 Copy to: CC:Ginette Zavaleta MD; Brendan Whalen DO Imaging - [facility] Imaging - [facility] Imaging - [facility] [id number] [place] [id number] [place] [address] ph ([phone]) ph ([phone]) ph ([phone]) Name Value Range Interpretation Code Description Data Ariane rce(s) Supporting Document(s) ID Date Data Source [id number] 11/28/2019 08:39:00 AM [facility] ED Provider Documentation Patient: BHUMI REINA /Age: 11 1985 34 Medical Record#: [id number] Service Date: 11/28/19 Location: EMERGENCY 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 Patient's 34-year-old female who was at work at [employer]. Patient states she was lifting something to clean when a register tape dispenser fell off of a high shelf from storage went on her head. Patient's sutures S her head. Patient states she did have a loss of consciousness but is not sure how long. Patient states initially she had nausea but at since resolved. No vomiting. No vision changes. No blood HEENT. No neck or back pain. Patient has not taken any thing for pain prior to arrival. Her girlfriend picked up and brought her here. Patient without any open wounds. no anticoagulants - History Of Current Complaint Chief Complaint: EDHeadInjury Stated Complaint: HEAD INJURY PER PT Time Seen by Provider: 11/28/19 07:46 Hx Obtained From: Patient Onset/Duration: Started Hours Ago Pain Intensity: 10 - Allergies/Home Medications Allergies/Adverse Reactions: Allergies Allergy/AdvReac Type Severity Reaction Status Date / Time bupropion [From Wellbutrin] Allergy Hives Verified 11/28/19 07:41 escitalopram [From Lexapro] Allergy Unknown Verified 11/28/19 07:41 Reaction Details latex Allergy Hives Verified 11/28/19 07:41 sertraline [From Zoloft] Allergy Hives Verified 11/28/19 07:41 Home Medications: Home Medications Tramadol HCl 50 mg PO BID 11/28/19 [History Confirmed 11/28/19] Zonisamide 150 mg PO BEDTIME 11/28/19 [History Confirmed 11/28/19] oxyCODONE/Acetamin 5/325 MG* [Percocet 5/325 TAB*] 1 tab PO Q6H PRN MDD 8 11/28/19 [History Confirmed 11/28/19] PMH/Surg Hx/FS Hx/Imm Hx Previously Healthy: Yes Endocrine/H ematology History: Denies: Hx Anticoagulant Therapy, Hx Diabetes Cardiovascular History: Denies: Hx Hypertension Musculoskeletal History: Reports: Other Musculoskeletal History - Hx chronic back pain Sensory History: Denies: Hx Legally Blind, Hx Deafness Opthamlomology History: Denies: Hx Legally Blind - Surgical History Surgical History: Yes Surgery Procedure, Year, and Place: Frontal fusion 12/09/18 Infectious Disease History: No Infectious Disease History: Denies: Traveled Outside the [place] in Last 30 Days - Family History Known Family History: Negative: Cardiac Disease, Diabetes - Social History Occupation: Employed Full-time Lives: With Family Alcohol Use: Occasionally Hx Substance Use: Yes Substance Use Type: Reports: Marijuana Substance Use Comment - Amount Last Used: last used last night Hx Tobacco Use: Yes Smoking Status (MU): Heavy Every Day Tobacco Smoker Type: Cigarettes Amount Used/How Often: 1/2 ppd Review of Systems Constitutional: Negative Eyes: Negative Cardiovascular: Negative Respiratory: Negative Positive: Nausea Musculoskeletal: Negative Skin: Negative Positive: Headache Psychological: Normal All Other Systems Reviewed And Are Negative: Yes Physical Exam - Summary Physical Exam Summary: Vital Signs Reviewed: Yes A+Ox3, no distress Eyes: Conjunctiva Clear, DARIN. EOM intact and full, no phot ophobia ENT: Hearing grossly normal TM x 2 clear, mmoist, uvula midline, no exudate, no erythema Neck: Positive: Supple Respiratory: Positive: No respiratory distress, No accessory muscle use + CTA throughout no w/r Cardiovascular: RRR nl s1, s2 no m/r CBT <2 sec abd soft + BS nt/nd no guarding, no distension Musculoskeletal Exam: BOWMAN x 4 without difficulty Strength Intact, ROM Intact Neurological: Positive: Alert, + sensation throughout CN 2- 12 intact and full Full AROM ext + FNF b/l Psychological: Positive: Normal Response To examiner Skin: Positive: no rash, no ecchymosis, left lateral scalp pt with small contusion - no open wounds, no crepitus Triage Information Reviewed: Yes Vital Signs On Initial Exam: Initial Vitals Temp Pulse Resp BP Pulse Ox 97.4 F 94 19 129/84 100 11/28/19 07:37 11/28/19 07:37 11/28/19 07:37 11/28/19 07:37 11/28/19 07:37 Procedures - Sedation Patient Received Moderate/Deep Sedation with Procedure : No Diagnostics - Vital Signs Vital Signs Temp Pulse Resp BP Pulse Ox 11/28/19 08:19 91 118/75 99 11/28/19 08:00 90 99 11/28/19 07:50 96 99 11/28/19 07:49 90 126/91 100 11/28/19 07:37 97.4 F 94 19 129/84 100 - Laboratory Lab Statement: Any lab studies that have been ordered have been reviewed, and results considered in the medical decision making process. - CT No standard instances CT Interpretation Completed By: Radiologist - Patient Name: BHUMI REINA Medical Record#: [id number] Ordering Physician: Ginette Zavaleta MD Acct.#: [id number] : 1985 Age: 34 Sex: F Location: EMERGENCY DEPARTMENT Exam Date: 11/28/19857 ADM Status: REG ER Order Information: CT BRAIN WO Accession Number: [id number] CPT: 78085 Indication: Headache. CT of the brain performed without IV contrast. Ventricular structures are midline. No midline shift is noted. The extra-axial spaces are unremarkable. There is no evidence of intracranial mass or hemorrh age. No other high or low density lesions are identified. Mastoid air cells and paranasal sinuses are unremarkable. IMPRESSION: No intracranial mass or hemorrhage. <Electronically signed by Joyce Manley MD in OV> 11/28/19942 Dictated By: Joyce Manley MD Dictated Date/Time: 11/28/19942 Transcribed Date/Time: 11/28/19942 Copy to: CC:Ginette Zavaleta MD; Brendan Whalen DO Imaging - [facility] Imaging - [facility] Imaging - [facility] [address] [place] [id number] [address] [address] ph ([phone]) ph ([phone]) ph ([phone]) This report is only to be considered final once signed by the Provider(s) as displayed in the "<Electronically Signed by >" field (s). Absence of a signature indicates the report is in a draft status and still needs to be finalized. In the event this document was created by someone other than the signing Provider, the individual initiating the document will be listed in the "Entered by:" or "Dictated by:" ortega. 1 of 1 Re-Evaluation - Re-Evaluation Second Eval Comment: Repeat CT with patient. No acute process. Recommend patient apply ice. Motrin and Tylenol. Rest. Avoid screen time. Reviewed concussion symptoms. Patient fell with Dr. Espana. Patient given note for work today and tomorrow. Questions asked and answered. Significant other to drive home. Head Injury Course/Dx Course Of Treatment: Patient presents to urgent care reporting left-sided headache after she was struck in the head with falling object at work. No patient states she did have a brief loss of consciousness. No blood in HEENT.. No neck or back pain. Patient with mild left-sided headache. Vital signs stable. No crepitus. Will check CT. Will give aspirin and ice. We'll reassess. Patient comfortable with the plan. - Diagnoses Provider Diagnoses: Scalp contusion, Closed head injury Discharge ED - Sign-Out/Discharge Documenting (check all that apply): Patient Departure - Discharge Plan Condition: Stable Disposition: HOME Patient Education Materials: Head Injury (ED), Scalp Contusion in Adults (ED) Forms: *Gen. Provider Communication, *Work Release Referrals: Kelvin Alford MD [Medical Doctor] - Brendan Whalen DO [Primary Care Provider] - Additional Instructions: - STay well hydrated Drink plenty of non-alcoholic, non- caffinated beverages - Okay to alernate ibuprofen (Advil, Motrin) 600mg and Tylenol every 3hours for pain. Take with food - get plenty of restful sleep - Avoid screen time (TV, ipad, cell phone, computer) until you feeling better - contact Dr. Alford, occupational health specialist, to schedule a follow-up appointment since your injury occurred at work - Billing Disposition and Condition Condition: STABLE Disposition: Home <Electronically signed by Jeanne Zavaleta MD> 11/28/19 1053 Entered by: Ginette Zavaleta MD Entered Date/Time: 11/28/19 0839 Copy to: Brendan Whalen DO Name Value Range Interpretation Code Description Data Ariane rce(s) Supporting Document(s) ID Date Data Source [id number] 09/03/2019 11:09:00 AM EST [place] No pathogenic beta hemolytic Streptococc i cultured Name Value Range Interpretation Code Description Data Ariane rce(s) Supporting Document(s) Procedure Social History Code Duration Value Status Description Data Source(s ) Smoking 10/20/2020 12:00:00 AM EST Current Smoker completed Curre nt Smoker eCW1 ([facility]) Smoking 06/21/2020 05:04:00 PM EDT Current Heavy tobacco smoke r completed Current Heavy tobacco smoker [facility] Smoking 11/28/2019 10:53:00 AM EST Current Heavy tobacco smoke r completed Current Heavy tobacco smoker [facility] Vital Signs ID Date Data Source UNK Name Value Range Interpretation Code Description Data Source(s) [place] body weight 115 [lb_av] 115 [lb_av] MEDEN T ([facility], ) Body mass index (BMI) [Ratio] 33.7 kg/m2 33.7 k g/m2 [facility] Body weight 190.00 [lb_av] 190.00 [lb_av] MEDEN T ([facility]) Body height 63 [in_i] 63 [in_i] [facility] 5'3" Respiratory rate 12 /min 12 /min [facility] ( [facility]) ID Date Data Source [id number] 06/22/2020 10:23:00 AM EDT [facility] Name Value Range Interpretation Code Description Data Source(s) HEIGHT 160.02 cm 160.02 cm [facility] WEIGHT RECORDED 86.47206 kg 86.58581 kg [facility] ID Date Data Source [id number] 06/22/2020 10:23:00 AM EDT [facility] Name Value Range Interpretation Code Description Data Source(s) HEIGHT 160.02 cm 160.02 cm [facility] WEIGHT RECORDED 87.943990 kg 87.334078 kg [facility] HEIGHT 160.02 cm 160.02 cm [facility] WEIGHT RECORDED 87.091998 kg 87.872656 [address] [facility] Patient Treatment Plan of Care Planned Activity Planned Date Details Description Data Source (s) Acetaminophen 325 MG / Oxycodone Hydrochloride 5 MG Or al Tablet 10/23/2020 12:00:00 AM EST eCW1 ([facility])
--- OUTSIDE RECORDS SUMMARY | 2020-10-28 13:17 | CCD ---
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 Name Role Phone Martha Blackmon Unavailable PROBLEMS Type Condition ICD9-CM Code [id number] Code Onset Dates Condition S tatus SNOMED Code Notes Problem Bipolar affective disorder, remission status unspecified F31.9 Active 73602726 Problem DDD (degenerative disc disease), lumbar M51.36 Active 72330160 Problem Ureteral stone with hydronephrosis N13.2 Activ e [id number] ALLERGIES Allergen (clinical drug ingredient) Drug/Non Drug Allergy do cumented on EMR Reaction Allergy Type Onset Date Status Wellbutrin hive,throat swelling Drug Allergy Ac tive sertraline Zoloft([facility] Code:[address]-16) hives, throat swelling Drug Allergy Active escitalopram Lexapro([facility] Code:[address]-75) hives. throat sw elling Drug Allergy Active latex facial swelling Non Drug Allergy Act miguel ENCOUNTERS from 1985 to 2020-10-24 Encounter Location Date Provider Diagnosis [facility] [address] [place] [address] Oct, Martha Blackmon Bipolar affective disorder, remission st atus unspecified F31.9 and DDD (degenerative disc disease), lumbar M51.36 IMMUNIZATIONS No Information SOCIAL HISTORY Tobacco Use: Social History Observation Description Date Details (start date - stop date) Current Smoker Sex Assigned At : Social History Observation Description Sex Assigned At Unknown Language: Question Answer Notes Languages spoken: Yi Quaker: Question Answer Notes Quaker No gnosticist beliefs that would impact health care. Alcohol Screening: Question Answer Notes Did you have a drink containing alcohol in the past year? No Points 0 Interpretation Negative Tobacco Use: Question Answer Notes Are you a: current smoker less than 1/2ppd Patient counseled on the dangers of tobacco use and urged to quit: 10/20/2020 How many cigarettes a day do you smoke? 5 or less Are you interested in quitting? Thinking about quitting Counseled the patient on smoking cessation, education provid ed 10/20/2020 REASON FOR REFERRAL No Information VITAL SIGNS No information MEDICATIONS Medication SIG (Take, Route, Frequency, Duration) Notes Start Da te End Date Status Omeprazole 20 MG 1 capsule 30 minutes before morning meal Orally Once a day for 30 day(s) Active Duloxetine HCl 60 MG 1 capsule Orally bid for 30 days Active Formoterol Fumarate Activ e Oxycodone-Acetaminophen 5-325 MG 1 tablet as needed Or ally every 6 hrs for 30 days Oct, Active Budesonide (Inhalation) A ctive Cyclobenzaprine HCl 10 MG 1 tablet at bedtime as neede d Orally three times daily Active Setlakin 0.15-0.03 MG 1 tablet Orally Once a day for 91 day(s) Active Zonisamide 50 MG 3capsule Orally at bed time Active BusPIRone HCl 15 MG 1 tablet Orally Twice a day for 30 days Active PROCEDURES No Information RESULTS No Results REASON FOR VISIT medication MEDICAL (GENERAL) HISTORY Type Description Date Medical History DDD Medical History history of kidney stones Medical History chronic migraine headaches Medical History bipolar affective disorder Medical History asthma Surgical History L4-5, L5-S1 fusion (Dr. Romero in [place], [place]) 08/2019 Hospitalization History surgery Goals Section No Information Health Concerns No Information MEDICAL EQUIPMENT No Information MENTAL STATUS No Information FUNCTIONAL STATUS No Information ASSESSMENTS Encounter Date Diagnosis Assessment Notes Treatment Notes Treatm ent Clinical Notes Oct, Bipolar affective disorder, remission status unspecified (ICD-10 - F31.9) Oct, DDD (degenerative disc disease), lumbar (ICD-10 - M51.36) PLAN OF TREATMENT Medication Medication Name Sig Start Date Stop Date BusPIRone HCl 15 MG 1 tablet Orally Twice a day for 30 days Oxycodone-Acetaminophen 5-325 MG 1 tablet as needed Or ally every 6 hrs for 30 days Oct, Duloxetine HCl 60 MG 1 capsule Orally bid for 30 days Next Appt Details Provider Name:Yani Harrington, 2020-11-02 08:20:00 AM, [address] [place], [address], Provider Name:Martha Blackmon, 2020-11-17 03:00:00 PM, [address], [place], [address], Insurance Providers Payer Name Payer Address Payer Phone Insured Name Patient Relati onship to Insured Coverage Start Date Coverage End Date [facility] CLAIMS DEPT [address] [facility] [phone] [place],BHUMI rodriguez
[2020-10-28] MEDS ORDERED: ACETAMINOPHEN 500 MG TAB PO ONE (13:45)
[2020-10-28] MEDS ORDERED: METOCLOPRAMIDE INJ 10MG/2ML VIAL (J2765 PER 1) IV ONE (13:45)
[2020-10-28] MEDS ORDERED: KETOROLAC 30 MG/ML 1ML VIAL IV ONE (13:45)
--- OUTSIDE RECORDS SUMMARY | 2020-10-28 14:00 | CCD ---
Author Author [facility] Organization [facility] Address Unknown Phone Unavailable Care Team Providers Care Assembler Semiconductor Name Role Phone [facility], Emergency Drummond Unavailable Unavailable [place], COVID Unavailable Unavailable Clarita Yadav MD Unavailable Unavailable Clarita Yadav MD Unavailable Unavailable Clarita Yadav MD Unavailable Unavailable Kishan Zavaleta MD Unavailable Kishan Zavaleta MD Unavailable Kishan Zavaleta MD Unavailable Kishan Zavaleta MD Unavailable Kishan Zavaleta MD Unavailable Kelin ([facility] COVID), DO NOT EDIT Ady HERNÁNDEZ Unavail [...] Unavailable Unavailable Sophie Antonio MD Unavailable Unavailable VintonBrian MD Unavailable Unavailable Vinton, Brian Epstein MD Unavailable Unavailable Nick, Brian Epstein MD Unavailable Unavailable Vinton, Brian Epstein MD Unavailable Unavailable Nick, Brian Epstein MD Unavailable Unavailable Vinton, Brian Epstein MD Unavailable Unavailable Nick, Brian Epstein MD Unavailable Unavailable Nick, Brian Epstein MD Unavailable Unavailable Nick, Brian Epstein MD Unavailable Unavailable Nick, Brian Epstein MD Unavailable Unavailable Nick, Brian Epstein MD Unavailable Unavailable Vinton, Brian Epstein MD Unavailable Unavailable Vinton, Brian Epstein MD Unavailable Unavailable Nick, Brian Epstein MD Unavailable Unavailable Nick, Brian Epstein MD Unavailable Unavailable Nick, Brian Epstein MD Unavailable Unavailable NickBrian MD Unavailable Unavailable Nick, Brian Epstein MD Unavailable Unavailable Nick, Brian Epstein MD Unavailable Unavailable Vinton, Brian Epstein MD Unavailable Unavailable Nick, Brian Epstein MD Unavailable Unavailable Vinton, Brian Epstein MD Unavailable Unavailable Vinton, Brian Epstein MD Unavailable Unavailable NickBrian MD Unavailable Unavailable VintonBrian MD Unavailable Unavailable VintonBrian MD Unavailable Unavailable VintonBrian MD Unavailable Unavailable VintonBrian MD Unavailable Unavailable NickBrian MD Unavailable Unavailable VintonBrian MD Unavailable Unavailable NickBrian MD Unavailable Unavailable NickBrian MD Unavailable Unavailable VintonBrian MD Unavailable Unavailable NickBrian MD Unavailable Unavailable Daja Barton MD Unavailable [...] Unavailable Unavailable Daja Barton MD Unavailable Unavailable Daaj Barton MD Unavailable Unavailable Daja Barton MD [...] Barton MD Unavailable Unavailable Jeannine Oneill Veda CLINICAL RECRUITER-C Unavailable Unavailable Jeannine Oneill Veda CLINICAL RECRUITER-C Unavailable Unavailable Jeannine Oneill Veda CLINICAL RECRUITER-C Unavailable Unavailable Jeannine Oneill Veda CLINICAL RECRUITER-C Unavailable Unavailable Jeannine Oneill Veda CLINICAL RECRUITER-C Unavailable Unavailable Jeannine Oneill Veda CLINICAL RECRUITER-C Unavailable Unavailable Jeannine Oneill Veda CLINICAL RECRUITER-C Unavailable Unavailable Jeannine Oneill Veda CLINICAL RECRUITER-C Unavailable Unavailable Jeannine Oneill Veda CLINICAL RECRUITER-C Unavailable Unavailable Jeannine Oneill Veda CLINICAL RECRUITER-C Unavailable Unavailable Jeannine Oneill Veda CLINICAL RECRUITER-C Unavailable Unavailable Jeannine Oneill Veda CLINICAL RECRUITER-C Unavailable Unavailable Jeannine Oneill Veda CLINICAL RECRUITER-C Unavailable Unavailable Nino M Veda CLINICAL RECRUITER-C Unavailable Unavailable Jeannine Oneill Veda CLINICAL RECRUITER-C Unavailable Unavailable Jeannine Oneill Veda CLINICAL RECRUITER-C Unavailable Unavailable Jeannine Oneill Veda CLINICAL RECRUITER-C Unavailable Unavailable Jeannine Oneill Veda CLINICAL RECRUITER-C Unavailable Unavailable Jeannine Oneill Veda CLINICAL RECRUITER-C Unavailable Unavailable Jeannine Oneill Veda CLINICAL RECRUITER-C Unavailable Unavailable Jeannine Oneill CLINICAL RECRUITER-C Unavailable Unavailable Jeannine Oneill CLINICAL RECRUITER-C Unavailable Unavailable Jeannine Oneill CLINICAL RECRUITER-C Unavailable Unavailable Jeannine Oneill CLINICAL RECRUITER-C Unavailable Unavailable Jeannine Oneill CLINICAL RECRUITER-C Unavailable Unavailable Jeannine Oneill CLINICAL RECRUITER-C Unavailable Unavailable Jeannine Oneill CLINICAL RECRUITER-C Unavailable Unavailable Re-disclosure Warning The records that [...] is protected by Article 27-F of the [facility] Public Health law. If you continue you may have access to information: Regarding HIV / AIDS; Provided by facilities licensed or operated by the [facility] Office of Mental Health; or Provided by the [facility] Office for People With Developmental Disabilities. If such information is present, then the following [facility] mandated warning applies: This information has [...] law may result in a fine or care home sentence or both. A general authorization for the release of medical or other information is NOT sufficient authorization for further disc losure. Allergies and Adverse Reactions Type Description Substance Reaction Status Data Source(s ) Allergy to substance Allergy to substance sertraline [facility] Allergy to substance Allergy to substance latex [facility] Allergy to substance Allergy to substance escitalopram [facility] Allergy to substance Allergy to substance bupropion [facility] Encounters Encounter Providers Location Date Indications Data Source(s ) Unknown [address] [facility] [address] 10/23/2020 12:00:00 AM EST eCW1 ([facility]) Outpatient Attender: Bhupendra Barton MD Main office - [facility] 10/20/2020 07:30:00 AM EST MEDENT ([facility]) Emergency Attender: Queta Paez DAttender: Drummond CMCEDConsultant: Lucian Romero MD 06/21/2020 03:06:00 PM EDT - 06/21/2020 05:55:00 PM EDT LOWER BACK PAIN PER PT [facility] LOWER BACK PAIN PER PT Patient discharged. Outpatient Attender: Ady Neville ([facility] SEBASTIAN) MDConsult ant: SEBASTIAN Cueto 06/16/2020 01:43:00 PM EDT [facility] Emergency Attender: Berto Antonio MD 01/07/2020 12: 06:00 PM EDT DIARRHEA,VOMITING,HEADACHE [facility] DIARRHEA,VOMITING,HEADACHE Emergency Attender: Ginette Zavaleta MD 11/28 07:36:00 AM EST - 11/28/2019 10:33:00 AM EST HEAD INJURY PER PT [facility] HEAD INJURY PER PT Patient discharged. Lab Req Attender: Veda VILLEDA-CReferrer: Veda Blanco-C [id number] 09/02/2019 02:30:21 PM EST [facility] Medications Medication [...] {tablet_as_needed} active O xycodone-Acetaminophen 5-325 MG eCW1 ([facility]) buspirone hydrochloride 15 MG Oral Tablet BUSPIRONE [...] HCL 10/20/2020 12:00:00 AM EST active MEDENT ([facility]) 50 mg 10/16/2020 12:00:00 [...] PM EDT TABLET 750 MG ORAL active [facility] Methylprednisolone Methylprednisolone 06/21/2020 05:21:29 PM EDT UNAS SIGNED 0 Route active [facility] Acetaminophen 325 MG / Oxycodone Hydroch loride 5 MG Oral Tablet Oxycodone-Acetaminophen Oxycodone-Acetaminophen 11/28/2019 09:31:26 AM EST TABLET 1 TAB ORAL active [facility] Acetaminophen 325 MG / Oxycodone Hydroch loride 5 MG Oral Tablet Oxycodone/Acetamin 5/325 Mg* Oxycodone/Acetamin 5/325 Mg* 11/28/2019 09:31:00 AM EST TABLET 1 TAB ORAL active [facility] tramadol hydrochloride 50 MG Oral Tablet Tramadol Tramadol 11/28/2019 09:24:16 AM EST TABLET 50 MG ORAL active [facility] zonisamide 50 MG Oral Capsule Zonisamide Zonisamide 020 09:24:16 AM EST CAPSULE 150 MG ORAL active [facility] tramadol hydrochloride 50 MG Oral Tablet Tramadol Hcl Tramad ol Hcl 11/28/2019 09:24:00 AM EST TABLET 50 MG ORAL active [facility] Zonisamide 11/28/2019 09:24:00 AM EST CAPSULE 150 MG ORAL ac tive [facility] Lidocaine Hydrochloride 0.05 MG/MG Trans dermal Patch [Lidoderm] Lidocaine Patch 5%* Lidocaine Patch 5%* 08/05/2019 10:48:00 AM EDT PATCH 1 PATCH TRANSDERM completed [facility] enter Prednisone 50 MG Oral Tablet Prednisone 50 Mg Tab Prednisone 50 Mg Tab 08/05/2019 10:48:00 AM EDT TABLET 50 MG ORAL [facility] Acetaminophen 325 MG / Oxycodone Hydroch loride 5 MG Oral Tablet Oxycodone/Acetamin 5/325 Mg* Oxycodone/Acetamin 5/325 Mg* 08/05/2019 10:48:00 AM EDT TABLET 2 TAB ORAL [facility] zonisamide 50 MG Oral Capsule Zonisamide (Nf) Zonisamide (Nf ) 08/05/2019 09:51:00 AM EDT CAPSULE 150 MG ORAL completed [facility] Naproxen 500 MG Oral Tablet Naproxen 08/05/2019 09:51:00 AM EDT TAB LET 500 MG ORAL completed [facility] Insurance Providers Payer name Policy type / Coverage type Policy ID Covered green party ID Covered green party's relationship to knight Policy Knight Plan Information EZEKIEL [id number] SP [id number] [address] [place] [id number] S [id number] SELF PAY SELF PAY SELF PAY SELF EZEKIEL-[employer]ICAID MANAGED CARE [id number] SELF [id number] [place] [id number] Self [id number] 500 EZEKIEL O 22 [id number] Self [id number] EZEKIEL-MEDICAID MANAGED CARE [id number] SELF [id number] Problems, Conditions, and Diagnoses Code Display Name Description Problem Type Effective Dates Data Source(s) M51.36 [id number] DDD (degenerative disc disease), lumbar P roblem 10/20/2020 12:00:00 AM EST eCW1 ([facility]) F31.9 [id number] Bipolar affective disorder, remission sta tus unspecified Problem 10/20/2020 12:00:00 AM EST eCW1 ([facility]) [id number] Migraine Migraine Problem 10/20/2020 12:00:00 AM JUSTINE MCCALL ([facility] ) N13.2 Hydronephrosis with renal and ureteral c alculous obstruction Ureteral stone with hydronephrosis Problem 09/05/2020 12:00:00 AM EST eCW1 ([facility]) S09.90XA Unspecified injury of head, initial enco unter S09.90XA - Unspecified injury of head, initial encounter Diagnosis 11/28/2019 07:36:00 AM [facility] Surgeries/Procedures Procedure Description Date Indications Data Source(s) CT SPINE LUMBAR W/O 06/21/2020 04:12:00 PM EDT [facility] Computerized axial tomography of brain without radiopa que contrast (procedure) 11/28/2019 12:00:00 AM EST [facility] Results ID Date Data Source [id number] 08/01/2020 12:00:00 AM EDT [facility] Lucian Romero MD Patient Name: BHUMI [address] Date of : 1985 10 Date of Exam: 08/01/2020LEONARDO Muir [id number]#: Fax: [phone] EXAM: MRI LUMBAR SPINE WITHOUT&WITH [...] by: Tutu Yarbrough MD 08/01/2020 11:38 AM [place] [facility] [facility] [place]VradV/Lorin you for referring BHUMI REINA to our office. Electronically Signed - [facility] 08/01/20 12:32 Name Value Range Interpretation Code Description Data Ariane rce(s) Supporting Document(s) ID Date Data Source [id number] 06/21/2020 05:42:00 PM EDT [facility] Name Value Range Interpretation Code Description Data Ariane rce(s) Supporting Document(s) Urine Color Yellow [facility] Urine Appearance Clear [facility] Urine Specific [place] 1.020 1.010-1.030 N [facility] Urine pH 6.0 5-9 N [facility] Urine Urobilinogen Negative Negative [facility] Urine Ketones Trace Negative A [facility] enter Urine Protein Negative Negative [facility] enter Urine Leukocytes Negative Negative [facility] Urine Blood Negative Negative [facility] ter * * Negative A [facility] *Ascorbic acid is present which may inte rfere with detectionof blood. Urine Nitrite Negative Negative [facility] enter Urine Bilirubin Negative Negative [facility] Urine Glucose Negative Negative [facility] enter ID Date Data Source [id number] 06/21/2020 04:37:00 PM EDT [facility] Patient Name: BHUMI REINA Ordering Physician: Wanda PENA Accoun t Number: [id number] : 1985 Age: 34 Sex: F Location: EMERGENCY DEPARTMENT Exam Date: 06/21/20 1612 ADM Status: REG ER Observation Date/Time: Order Information: CT SPINE LUMBAR W/O Accession Number: [id number] CPT: 17908 Indication: Low back pain, numbness in the [...] Lucian Romero MD; Joyce Manley MD; Brendan Whalen DO Imaging - [facility] Imaging [facility] Urgent [facility] [address] [address] ph [phone]) ph ([phone]) ph ) Name Value Range Interpretation Code Description Data Ariane rce(s) Supporting Document(s) ID Date Data Source [id number] 06/21/2020 04:31:00 PM EDT [facility] ED Provider Documentation Patient: BHUMI REINA Account Number: [id number] /Age: 11 1985 34 Medical Record #: [id number] Service Date: 06/21/20 Location: EMERGENCY DE PARTMENT [...] 11/28/19 07:41 Home Medications: Home Medications Butalb/Acetaminophen/Caffeine [Wigswz-Zjflgcwy-Rokk 50-3 25-40] 1 each PO Q6HR PRN [...] rce(s) Supporting Document(s) ID Date Data Source [id number] 06/16/2020 08:46:00 PM EDT [facility] [id number] Name Value Range Interpretation Code Description Data Ariane rce(s) Supporting Document(s) SARS Coronavirus-2, PCR Undetected Undetected [facility] Negative results do not preclude SARS-Co V-2 infection andshould not be used as the sole basis for patient managementdecisions.The TetraZimride PT-PCR COVID-19 assay has been internallyvalidated for saliva and pooled upper respiratory specimens. SARS Coronavirus-2, Source Nasopharyngeal [facility] ID Date Data Source [id number] 11/28/2019 09:43:00 AM EST [facility] Patient Name: BHUMI REINA Medical Record#: [id number] Ordering Physician: Ginette Zavaleta MD Acct.#: [id number] : 1985 Age: 34 Sex: F Location: EMERGENCY DEPARTMENT Exam Date: 11/28/19857 ADM Status: REG ER Order Information: CT BRAIN WO Accession Number: [id number] CPT: 70360 Indication: Headache. CT of the brain performed [...] Zavaleta MD; Brendan Whalen DO Imaging - [facility] Imaging - [facility] Imaging - [facility] [address] [place] [id number] [place] [address] ph [phone]) ph ([phone]) ph ([phone]) Name Value Range Interpretation Code Description Data Ariane rce(s) Supporting Document(s) ID Date Data Source [id number] 11/28/2019 08:39:[address] 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 Patient's 34-year-old female who was at work at [employer]. Patient states she was lifting something to [...] - Patient Name: BHUMI REINA Medical Record#: [id number] Ordering Physician: Ginette Zavaleta MD Acct.#: [id number] : 1985 Age: 34 Sex: F Location: EMERGENCY DEPARTMENT Exam Date: 11/28/19857 ADM Status: REG ER Order Information: CT BRAIN WO Accession Number: [id number] CPT: 65328 Indication: Headache. CT of the brain performed [...] Zavaleta MD; Brendan Whalen DO Imaging - [facility] Imaging - [facility] - [facility] [address] [place] [address] [address] ph ([phone]) ph ([phone]) ph ([phone]) This report is only to be considered [...] rce(s) Supporting Document(s) ID Date Data Source [id number] 09/03/2019 11:09:00 AM EST [facility] No pathogenic beta hemolytic Streptococc i cultured Name Value Range Interpretation Code Description Data Ariane rce(s) Supporting Document(s) Procedure Social History Code Duration Value Status Description Data Source(s ) Smoking 10/20/2020 12:00:00 AM EST Current Smoker completed Curre nt Smoker eCW1 ([facility]) Smoking 06/21/2020 05:04:00 PM EDT Current Heavy tobacco smoke r completed Current Heavy tobacco smoker [facility] Smoking 11/28/2019 10:53:00 AM EST Current Heavy tobacco smoke r completed Current Heavy tobacco smoker [facility] Vital Signs ID Date Data Source UNK Name Value Range Interpretation Code Description Data Source(s) [place] body weight 115 [lb_av] 115 [lb_av] MEDEN T ([facility], ) Body mass index (BMI) [Ratio] 33.7 kg/m2 33.7 k g/m2 [facility] Body weight 190.00 [lb_av] 190.00 [lb_av] MEDEN T ([facility]) Body height 63 [in_i] 63 [in_i] [facility] ([facility]) 5'3" Respiratory rate 12 /min 12 /min [facility] ( [facility]) ID Date Data Source [id number] 06/22/2020 10:23:00 AM EDT [facility] Name Value Range Interpretation Code Description Data Source(s) HEIGHT 160.02 cm 160.02 cm [facility] WEIGHT RECORDED 86.28747 kg 86.56752 kg [facility] ID Date Data Source [id number] 06/22/2020 10:23:00 AM EDT [facility] Name Value Range Interpretation Code Description Data Source(s) HEIGHT 160.02 cm 160.02 cm [facility] WEIGHT RECORDED 87.784306 kg 87.590749 kg [facility] HEIGHT 160.02 cm 160.02 cm [facility] WEIGHT RECORDED 87.322478 kg 87.016947 kg [facility] Patient Treatment Plan of Care Planned Activity Planned Date Details Description Data Source (s) Acetaminophen 325 MG / Oxycodone Hydrochloride 5 MG Or al Tablet 10/23/2020 12:00:00 AM EST eCW1 ([facility])
[2020-10-28] MEDS ORDERED: VERA40TA PO (14:29)
[2020-10-28 14:36] VITALS: BP 104/51
== END 2020-10-28 14:40 | disposition home or self-care (01) ==
LOC: M ED 13:11
DX: G43.909 Migraine, unspecified, not intractable, without status migrainosus (principal); F17.200 Nicotine dependence, unspecified, uncomplicated; Z88.6 Allergy status to analgesic agent; Z88.8 Allergy status to other drugs, medicaments and biological substances
CPT/HCPCS: 96374; 99284; J1885; J2765

== ENCOUNTER → 2021-01-25 | Outpatient (REF) | payer OTHER ==
[~2021-01-25] MED LIST changes: +VERA40TA PO
[2021-01-25 19:17] LABS: CHLAMYDIA DNA AMPLIFICATION NEGATIVE (NEGATIVE); GC DNA AMPLIFICATION NEGATIVE (NEGATIVE)
== END ==
LOC: M SFHCWAGY 16:34
PROVIDERS: ATTEND Advanced Practice Midwife
DX: Z01.419 Encounter for gynecological examination (general) (routine) without abnormal findings (principal); Z11.3 Encounter for screening for infections with a predominantly sexual mode of transmission; Z12.4 Encounter for screening for malignant neoplasm of cervix

== ENCOUNTER → 2021-01-31 | Outpatient (CLI) | payer OTHER | LOC: M PLALAB 14:13 | PROVIDERS: ATTEND Advanced Practice Midwife | DX: Z13.79 Encounter for other screening for genetic and chromosomal anomalies (principal) ==

== ENCOUNTER → 2021-03-06 | Outpatient (REF) | payer OTHER ==
[~2021-03-06] MED LIST changes: +IBUP80TA PO; +[UNRECOGNIZED DRUG - REMARK]
[2021-03-06 14:09] LABS: BASO # 0.1 10^3/uL (0.0-0.2); BASO % 0.8 % (0.0-1.0); EOS # 0.2 10^3/uL (0.0-0.5); EOS % 2.6 % (0.0-3.0); HEMATOCRIT 43.5 % (36.0-47.0); HEMOGLOBIN 14.1 g/dl (12.0-15.5); LYMPH # 1.9 10^3/uL (1.5-5.0); LYMPH % 26.1 % (24.0-44.0); MEAN CORPUSCULAR HEMOGLOBIN 32.3 pg (27.0-33.0); MEAN CORPUSCULAR HGB CONC 32.4 g/dl (32.0-36.5); MEAN CORPUSCULAR VOLUME 99.8 fl (80.0-96.0); MONO # 0.5 10^3/uL (0.0-0.8); MONO % 7.2 % (2.0-8.0); NEUTROPHILS # 4.6 10^3/uL (1.5-8.5); PLATELET COUNT, AUTOMATED 181 10^3/uL (150-450); RED BLOOD COUNT 4.36 10^6/uL (4.00-5.40); WHITE BLOOD COUNT 7.2 10^3/uL (4.0-10.0)
[2021-03-06 16:11] LABS: ALBUMIN 3.8 GM/DL (3.2-5.2); ALT/SGPT 20 U/L (12-78); BILIRUBIN,TOTAL 0.4 MG/DL (0.2-1.0); BLOOD UREA NITROGEN 10 MG/DL (7-18); CALCIUM LEVEL 9.2 MG/DL (8.5-10.1); CARBON DIOXIDE LEVEL 24 MEQ/L (21-32); CHLORIDE LEVEL 108 MEQ/L (98-107); CREATININE FOR GFR 0.77 MG/DL (0.55-1.30); GLOMERULAR FILTRATION RATE > 60.0 (>60); GLUCOSE, FASTING 79 MG/DL (70-100); POTASSIUM SERUM 4.8 MEQ/L (3.5-5.1); SODIUM LEVEL 139 MEQ/L (136-145); TOTAL PROTEIN 6.8 GM/DL (6.4-8.2)
== END ==
LOC: M PLALAB 10:42
PROVIDERS: ATTEND Family Medicine
DX: Z01.810 Encounter for preprocedural cardiovascular examination (principal)

== ENCOUNTER → 2021-03-09 | Outpatient (CLI) | payer OTHER ==
[~2021-03-09] MED LIST changes: +SYMB80INH INH
== END ==
LOC: M LABSMTC 10:29
PROVIDERS: ATTEND Obstetrics & Gynecology
DX: Z01.818 Encounter for other preprocedural examination (principal); Z11.52 Encounter for screening for COVID-19

== ENCOUNTER 2021-03-14 07:58 | Day surgery (SDC) | payer OTHER ==
[~2021-03-14] VITALS: Ht 160 cm; Wt 91.2 kg
[~2021-03-14 07:58] MED LIST changes: +BUPIVACAINE HCL 0.25% 30ML VIAL As Ordered ONE; +LR 1,000 ML IV ONE; -SYMB80INH INH; +ceFAZolin SOD 2 GM in IV 1 EA IV ONE
[2021-03-14] MEDS ORDERED: MIDAZOLAM INJ 2MG/2ML VIAL (J2250 PER 1MG) As Ordered ONE (08:30)
[2021-03-14] MEDS ORDERED: fentaNYL 100 MCG/2 ML INJECTION (J3010) As Ordered ONE (08:31)
[2021-03-14] MEDS ORDERED: dexameTHASONE 4 MG/ML 1ML VIAL (J1100 PER 1MG) As Ordered ONE (08:32)
[2021-03-14 08:39] LABS: HEMATOCRIT 41.4 % (36.0-47.0); HEMOGLOBIN 13.6 g/dl (12.0-15.5); MEAN CORPUSCULAR HEMOGLOBIN 32.1 pg (27.0-33.0); MEAN CORPUSCULAR HGB CONC 32.9 g/dl (32.0-36.5); MEAN CORPUSCULAR VOLUME 97.6 fl (80.0-96.0); PLATELET COUNT, AUTOMATED 189 10^3/uL (150-450); RED BLOOD COUNT 4.24 10^6/uL (4.00-5.40); WHITE BLOOD COUNT 7.6 10^3/uL (4.0-10.0)
[2021-03-14] MEDS ORDERED: SYMB80INH INH (09:15)
--- NOTE | 2021-03-14 09:36 | ROOPDOC ---
[facility] Report Of Operation Report of Operation DATE OF PROCEDURE: 03/14/21 PREPROCEDURE DIAGNOSES: 1. Abnormal uterine bleeding. 2. Dysmenorrhea POSTPROCEDURE DIAGNOSES: 1. Abnormal uterine bleeding. 2. Dysmenorrhea PROCEDURES PERFORMED: 1. Robotic-assisted laparoscopic hysterectomy. 2. Bilateral salpingectomy. 3. Cystoscopy. SURGEON: Jenny Menendez MD OPERATIONS OFFICER [employer] DEPARTMENT: CHRISTIANA Osei ANESTHESIA: General endotracheal anesthesia. ESTIMATED BLOOD LOSS: 50 mL. INTRAVENOUS FLUIDS: 1000mL lactated Ringer solution. URINE OUTPUT: 50 mL. PREPROCEDURE ANTIBIOTICS: 2g Ancef OPERATIVE FINDINGS: The patient with normal-appearing bilateral adnexa and uterus CYSTOSCOPIC FINDING: Normal bladder mucosa, no foreign objects. Bilateral ureteral jets were observed. SPECIMEN: Uterus, cervix, bilateral fallopian tubes DESCRIPTION OF PROCEDURE: After informed consent was obtained and written consent was reviewed, the patient was brought to the operating room, where general endotracheal anesthesia was obtained. She was then placed in lithotomy position, was prepped and draped in a normal sterile fashion. A time-out in the operating room was then performed, identifying the patient, procedure to be performed, as well as drug allergies. A speculum was then placed, revealing the cervix. The anterior and posterior aspects of the cervix were stitched with a 0 Vicryl. The uterus was then sounded to 7 cm. A small [employer] uterine manipulator was then advanced through the cervical os for means to manipulate the uterus. The cervical cap was applied over the cervix, as well as the vaginal sleeve applied into the vagina. The speculum was removed from the patients vagina. A Mantilla catheter was then placed and set to gravity. Gloves were changed, and attention was turned to the patients abdomen, where a Veress needle was placed through the umbilicus. A pneumoperitoneum was then obtained with CO2 gas. The supraumbilical area was infused with 0.25% Marcaine. An incision was made in this area, and a 8 mm trocar and sleeve was advanced through this incision. The laparoscope was then replaced, revealing intra-abdominal placement. Three additional port sites were placed, two to the left side of the patient's abdomen and one to the right. These areas was infused with 0.25% Marcaine. Each one of these areas, incisions were made, and 8 mm trocars and sleeves advanced through each one of these incisions under direct visualization. Next, the da Svetlana was then docked, utilizing a camera arm and two operative arms. The patient's abdomen was then surveyed with the above-noted finding. Bilateral salpingectomies were then performed. The fallopian tubes' mesosalpinx was cauterized and ligated with hemostasis noted. Next, the uteroovarian ligaments bilateral were cauterized and ligated with good hemostasis noted. The round ligaments bilaterally were cauterized and ligated with good hemostasis noted. The anterior and posterior aspects of broad ligaments were . The anterior leaf of the broad ligament was cauterized and ligated and dissected along the bladder, creating a bladder flap. The remainder of the broad and cardinal ligaments were then cauterized and ligated with good hemostasis noted. The uterine arteries were skeletonized bilaterally and were cauterized and transected with good hemostasis noted. Anterior and posterior colpotomies were made using monopolar scissors. The uterus was then brought out through the vaginal incision. The surgical sites were inspected and noted to be hemostatic. The vaginal cuff was then closed using 2-0 V-Loc system in a running fashion. Emanuel was then applied over the surgical field. The pneumoperitoneum was then released. Next, the cystoscopy was then performed. Utilizing a 70-degree cystoscope, it was advanced transurethrally through the bladder. The bladder was surveyed, showing normal bladder mucosa, no foreign bodies. The bilateral ureteral jets were observed. The cystoscope was then removed. The bladder was then drained. Gloves were changed. Attention was then turned to the patients abdomen, where all four port sites were closed with 4-0 Monocryl and dressed with Dermabond. The patient was then taken out of lithotomy position and was awakened from general anesthesia and taken to recovery in stable condition. Counts were correct. Didi Castillo, my surgical appliance fitter, played a central role in the operation. She assisted with port placement, tissue retraction and identification, as well as wound closure. JENNY MENENDEZ MD. Mar 14, 2021 09:36
[2021-03-14] MEDS ORDERED: ACETAMINOPHEN 1000MG 100ML IV BTL (OFIRMEV) (J0131 PER 10MG) As Ordered ONE (10:14)
[2021-03-14] MEDS ORDERED: propofoL 200 MG/20 ML VIAL As Ordered ONE (10:20)
[2021-03-14] MEDS ORDERED: ONDANSETRON 4MG/2ML VIAL As Ordered ONE (10:20)
[2021-03-14] MEDS ORDERED: ROCURONIUM BROMIDE 50 MG/5 ML VIAL As Ordered ONE ×2 (10:20→11:07)
[2021-03-14] MEDS ORDERED: SUGAMMADEX SODIUM 500 MG/5 ML VIAL (BRIDION) As Ordered ONE (10:21)
[2021-03-14] MEDS ORDERED: KETOROLAC 60MG 2ML VIAL As Ordered ONE (10:21)
[2021-03-14] MEDS ORDERED: HYDROmorphone HCL 2 MG/ML 1ML VIAL (J1170) As Ordered ONE (11:05)
[2021-03-14] MEDS ORDERED: LIDOCAINE 2% 100MG/5ML SDV (FOR ANES.) As Ordered ONE (11:16)
[2021-03-14] MEDS ORDERED: oxyCODONE 5MG TAB PO PRN (12:00)
[2021-03-14] MEDS ORDERED: LR 1,000 ML IV SCH ×2 (12:00→12:15)
[2021-03-14] MEDS ORDERED: fentaNYL 100 MCG/2 ML INJECTION (J3010) IV PRN (12:00)
[2021-03-14] MEDS ORDERED: ONDANSETRON 4MG/2ML VIAL IV PRN (12:00)
[2021-03-14] MEDS ORDERED: PERCOCET 5MG/325MG TAB PO PRN ×2 (12:15)
[2021-03-14] MEDS ORDERED: PROMETHAZINE INJ 25 MG/ML VIAL (J2550) IV PRN (12:15)
[2021-03-14 13:15] VITALS: BP 117/68
[2021-03-14 13:45] VITALS: BP 118/68
[2021-03-14 14:15] VITALS: BP 120/70
[2021-03-14 15:45] VITALS: BP 113/69
[2021-03-14] MEDS ORDERED: KETOROLAC 30 MG/ML 1ML VIAL IV SCH (18:00)
== END 2021-03-14 16:40 | disposition home or self-care (01) ==
LOC: M SDC 07:58 → M MSPAV 13:10 → M SDC 16:40
PROVIDERS: ATTEND Obstetrics & Gynecology
DX: N85.8 Other specified noninflammatory disorders of uterus (principal); N85.00 Endometrial hyperplasia, unspecified; N72 Inflammatory disease of cervix uteri; N94.6 Dysmenorrhea, unspecified; M51.9 Unspecified thoracic, thoracolumbar and lumbosacral intervertebral disc disorder; G43.709 Chronic migraine without aura, not intractable, without status migrainosus; F31.9 Bipolar disorder, unspecified; J45.909 Unspecified asthma, uncomplicated; K21.9 Gastro-esophageal reflux disease without esophagitis; F41.9 Anxiety disorder, unspecified; R06.83 Snoring; Z87.442 Personal history of urinary calculi; Z87.891 Personal history of nicotine dependence; Z79.899 Other long term (current) drug therapy; Z79.3 Long term (current) use of hormonal contraceptives; Z79.891 Long term (current) use of opiate analgesic; Z88.8 Allergy status to other drugs, medicaments and biological substances; Z91.040 Latex allergy status
CPT/HCPCS: 36415; 58571; 81025; 85027; 86850; 86900; 86901; 88307; J0131; J0690; J1100; J1170; J1885; J2250; J2405; J3010; S2900

== ENCOUNTER → 2021-06-04 | Outpatient (CLI) | payer OTHER ==
[~2021-06-04] MED LIST changes: -BUPIVACAINE HCL 0.25% 30ML VIAL As Ordered ONE; -LR 1,000 ML IV ONE; +SYMB80INH INH; -ceFAZolin SOD 2 GM in IV 1 EA IV ONE
== END ==
LOC: M WHC 11:27
PROVIDERS: ATTEND Advanced Practice Midwife
DX: Z12.31 Encounter for screening mammogram for malignant neoplasm of breast (principal)

== ENCOUNTER → 2021-07-31 | Outpatient (CLI) | payer OTHER ==
[2021-07-31 13:58] LABS: BASO # 0.1 10^3/uL (0.0-0.2); BASO % 0.7 % (0.0-1.0); EOS # 0.2 10^3/uL (0.0-0.5); EOS % 2.1 % (0.0-3.0); HEMATOCRIT 43.5 % (36.0-47.0); HEMOGLOBIN 14.3 g/dl (12.0-15.5); LYMPH % 19.4 % (24.0-44.0); MEAN CORPUSCULAR HEMOGLOBIN 31.5 pg (27.0-33.0); MEAN CORPUSCULAR HGB CONC 32.9 g/dl (32.0-36.5); MEAN CORPUSCULAR VOLUME 95.8 fl (80.0-96.0); MONO # 0.8 10^3/uL (0.0-0.8); MONO % 7.5 % (2.0-8.0); NEUTROPHILS # 7.1 10^3/uL (1.5-8.5); NEUTROPHILS % 69.5 % (36.0-66.0); PLATELET COUNT, AUTOMATED 193 10^3/uL (150-450); RED BLOOD COUNT 4.54 10^6/uL (4.00-5.40); WHITE BLOOD COUNT 10.1 10^3/uL (4.0-10.0)
[2021-07-31 14:40] LABS: ALBUMIN 3.5 GM/DL (3.2-5.2); ALT/SGPT 18 U/L (12-78); BILIRUBIN,TOTAL 0.4 MG/DL (0.2-1.0); BLOOD UREA NITROGEN 12 MG/DL (7-18); CALCIUM LEVEL 9.1 MG/DL (8.5-10.1); CARBON DIOXIDE LEVEL 27 MEQ/L (21-32); CHLORIDE LEVEL 106 MEQ/L (98-107); CREATININE FOR GFR 0.84 MG/DL (0.55-1.30); GLOMERULAR FILTRATION RATE > 60.0 (>60); GLUCOSE, FASTING 93 MG/DL (70-100); POTASSIUM SERUM 4.1 MEQ/L (3.5-5.1); SODIUM LEVEL 139 MEQ/L (136-145); TOTAL PROTEIN 7.1 GM/DL (6.4-8.2)
== END ==
LOC: M PLALAB 10:06
PROVIDERS: ATTEND Family Medicine
DX: R53.81 Other malaise (principal)

== ENCOUNTER → 2021-09-28 | Outpatient (CLI) | payer OTHER | LOC: M RAD 12:19 | PROVIDERS: ATTEND Family Medicine | DX: M54.2 Cervicalgia (principal) ==

== ENCOUNTER → 2021-10-25 | Outpatient (CLI) | payer OTHER | LOC: M PLAIMG 12:30 | PROVIDERS: ATTEND Orthopaedic Surgery Sports Medicine | DX: M54.2 Cervicalgia (principal) ==